=== PATIENT | female | born 1935 | race Caucasian/White ===

== ENCOUNTER 2017-09-19 21:39 | Emergency (ER) | payer OTHER ==
[~2017-09-19] VITALS: Ht 160 cm; Wt 60.8 kg
[~2017-09-19 21:39] MED LIST: ADULT LOW DOSE81 MG PO; ADVAIR 250-501 EACH INH; ALBUTEROL2.5 MG/31 INH; AMLODIPINE BESYL5 MG PO; ASPIRIN81 M2; BACTRIM DS TAB1 EACH PO; BENADRYL25 MG PO; CALCIUM 600 +1 EA11 PO; CALCIUM 600+D1 EACH PO; CARDURA1 MG PO; CLARITIN10 MG PO; COUMADIN 1MG TAB1 M1 PO; COUMADIN 2.5MG2.5 M1 PO; COUMADIN 5 MG TA5 M1 PO; COZAAR 50 MG TA50 M1 PO; COZAAR 50 MG TA50 M2 PO; DIPHENHYDRAMINE25 M1 PO; DOXAZOSIN MESYLA1 MG PO; ELEMENTAL CALC600 MG; FISH OIL 1,001000 M2 PO; HYDROCODONE-AP1 EAC6 PO; JANUVIA100 MG PO; KLOR-CON 1010 MEQ PO; KLOR-CON SPRIN10 MEQ PO; LASIX 20 MG TAB20 MG PO; LEVAQUIN 500 M500 M2 PO; LEVAQUIN 750 M750 MG PO; MUCINEX600 MG PO; OMEPRAZOLE 20 M20 M1 PO; OS-CAL 500+D C1 EACH; OXYBUTYNIN 5 MG5 M2 PO; PAXIL10 MG; PERFOROMIS20 MCG/2 M; PERFOROMIS20 MCG/2 M INH; PRAVACHOL 20 MG20 M1 PO; PRAVACHOL20 MG PO; PREDNISONE 10 M10 M1; PREDNISONE 10 M10 M1 PO; PREDNISONE 20 M20 MG PO; PROAIR HFA8.5 GM INH; PROZAC 20 MG20 MG PO; PULMICORT0.5 MG/22 INH; RESTASIS1 EACH OPHTHALMIC; SYNTHROID50 MCG PO; TRAZODONE HCL50 MG PO; VESICARE 5 MG TA5 MG PO; VITAMIN D1000 UNI1 PO; XARELTO20 MG PO; ZPAK PO
[2017-09-19] MEDS ORDERED: MUCINEX1200 MG PO (21:53)
[2017-09-19] MEDS ORDERED: CARDURA4 MG PO (21:54)
[2017-09-19] MEDS ORDERED: PERFOROMIS20 MCG/2 M INH (21:57)
[2017-09-19] MEDS ORDERED: PERCOCET 5-3251 EACH PO (22:15)
[2017-09-19 22:32] VITALS: BP 142/66
== END 2017-09-19 22:34 | disposition home or self-care (01) ==
LOC: M.ERS 21:39
DX: S80.12XA Contusion of left lower leg, initial encounter (principal); J44.9 Chronic obstructive pulmonary disease, unspecified; K21.9 Gastro-esophageal reflux disease without esophagitis; E78.5 Hyperlipidemia, unspecified; E11.9 Type 2 diabetes mellitus without complications; I11.0 Hypertensive heart disease with heart failure; I50.9 Heart failure, unspecified; Z86.73 Personal history of transient ischemic attack (TIA), and cerebral infarction without residual deficits; Z85.828 Personal history of other malignant neoplasm of skin; Z86.718 Personal history of other venous thrombosis and embolism; Z86.711 Personal history of pulmonary embolism; Z91.041 Radiographic dye allergy status; Z88.0 Allergy status to penicillin; W22.8XXA Striking against or struck by other objects, initial encounter; Y93.89 Activity, other specified; Y92.89 Other specified places as the place of occurrence of the external cause; Y99.8 Other external cause status

== ENCOUNTER 2017-11-17 21:56 | Inpatient (IN) | payer OTHER ==
[~2017-11-17] VITALS: Ht 132 cm; Wt 59.0 kg
[~2017-11-17 21:56] MED LIST changes: +CARDURA4 MG PO; +MUCINEX1200 MG PO; +PERCOCET 5-3251 EACH PO
[2017-11-17 22:29] VITALS: BP 145/71
[2017-11-17 22:58] LABS: HEMATOCRIT 37.2 % (37.0-47.0); HEMOGLOBIN 11.6 gm/dL (12.0-15.0); MCH 23.6 pg (26.0-34.0); MCHC 31.3 g/dL (28.0-37.0); MCV 75.5 fL (80.0-100.0); MPV 9.1 fl. (7.2-11.1); NUCLEATED RBCS 0 /100WBC; PLATELET COUNT* 186 thou/uL (150-400); RBC 4.93 mil/uL (4.20-5.00); RDW-CV 17.9 % (10.5-14.5)
[2017-11-17 23:09] LABS: ANION GAP 5 mmol/L (7-16); BUN 18 mg/dL (7-18); CALCIUM 8.8 mg/dL (8.5-10.1); CHLORIDE 103 mmol/L (98-107); CO2 31 mmol/L (21-32); CREATININE 1.7 mg/dL (0.6-1.3); GLUCOSE 153 mg/dL (70-99); POTASSIUM 4.3 mmol/L (3.5-5.1); SODIUM 139 mmol/L (136-145)
[2017-11-17] MEDS ORDERED: FISH OIL 1,001000 M2 PO (23:09)
[2017-11-17] MEDS ORDERED: MUCINEX1200 MG PO (23:11)
[2017-11-17 23:15] LABS: ALKALINE PHOSPHATASE 207 U/L (46-116); LIPASE 81 U/L (73-393); SGOT 354 U/L (15-37); SGPT 305 U/L (30-65); TOTAL BILIRUBIN 2.6 mg/dL (<0.1-1.0); TROPONIN-I LEVEL <0.06 ng/mL (<0.06)
[2017-11-17 23:43] LABS: ABSOLUTE LYMPHOCYTES 0.7 thou/uL (0.8-5.3); ABSOLUTE MONOCYTES 0.9 thou/uL (0.0-1.2); ABSOLUTE NEUTROPHILS 16.4 thou/uL (1.6-8.1)
[2017-11-17 23:44] LABS: PLATELET ESTIMATE ADEQUATE
[2017-11-17 23:45] LABS: ANISOCYTOSIS 1+
[2017-11-18 02:10] LABS: URINE BLOOD NEGATIVE (Negative); URINE CLARITY CLEAR; URINE COLOR YELLOW; URINE GLUCOSE-RANDOM NEGATIVE (Negative); URINE KETONES NEGATIVE (Negative); URINE LEUKOCYTES-REFLEX NEGATIVE (Negative); URINE NITRITE-REFLEX NEGATIVE (Negative); URINE PROTEIN NEGATIVE (Negative)
[2017-11-18 02:12] LABS: URINE BILIRUBIN 1+ (Negative)
[2017-11-18 02:13] LABS: ICTOTEST (BILI CONFIRMATORY) Positive (Negative)
[2017-11-18 02:48] VITALS: BP 124/55
[2017-11-18 04:22] VITALS: BP 108/52
--- NOTE | 2017-11-18 05:57 | NUR ---
ARRIVED FROM ER ALERT AND ORIENTED. DAUGHTER AT BEDSIDE. ORIENTED TO ROOM AND BED CONTROLS. ASSESSMENT CHARTED. DENIES PAIN OR NAUSEA AT THIS TIME. CALL LIGHT WITHIN REACH.
[2017-11-18 08:00] VITALS: BP 145/64
--- NOTE | 2017-11-18 12:41 | EKG ---
[place] [address] ELECTROCARDIOGRAM REPORT Name: RUTH AGUILAR Room: [address] IN .R.#: [id number] Admission: 11/18/17 Attend Phys: Hyun Vega MD Discharge: Date of : 33 Report #: [id number] THIS REPORT FOR: //name// [facility] ED Test Date: 2017-11-17 Test Time: 22:49:37 Pat Name: RUTH AGUILAR Department: Room: Gender: F Inbound Sales Representative: : 1935 Requested By: Hamilton Mathis Order Number: [id number] MD: Boo Castro Measurements Intervals [place] Rate: 82 P: 54 MD: 109 QRS: -1 QRSD: 91 T: 54 QT: 423 QTc: 494 Interpretive Statements Sinus rhythm Short MD interval Minimal ST depression, lateral leads Borderline prolonged QT interval Compared to ECG 04/14/2017 09:04:08 ST (T wave) deviation now present Electronically Signed On 11-18-2017 12:41:39 CDT by Boo Castro [email or web address] <ELECTRONICALLY SIGNED> By: Boo Castro MD, [facility] 11/18/17 1241 2249 2249 Boo Castro MD, [facility] /EPI
[2017-11-18 16:00] VITALS: BP 149/75
--- NOTE | 2017-11-18 20:55 | NUR ---
I ASSUMED CARE OF THE PATIENT AT 0700. SHE IS ALERT AND ORIENTED X4 AND DAUGHTER IS AT THE BEDSIDE. BED ALARM IS ON AND SHE CAN GET UP WITH A WALKER AND A GAIT BELT TO USE THE BATHROOM. BLOOD SUGARS WERE OBTAINED AND WNL. HOURLY ROUNDING WAS COMPLETED AND PATIENT NEEDS WERE MET. PAIN IS DENIED. XERALTO IS TO BE HELD UNTIL AFTER ERCP AT 0800 ON 11/19/17. PATIENT REFUSED TO HAVE WOUND DRESSING CHANGED OR A PHOTO OBTAINED UNTIL THE END OF THE SHIFT, THEN THE DAUGHTER AGREED TO IT WHEN SHE FOUND SUPPLIES TO CHANGE IT PROPERLY. DRESSING IS IN THE ROOM. DO NOT TAKE BLOOD PRESSURES ON THE RIGHT D/T BRUISING. WILL CONTINUE TO MONITOR.
[2017-11-18 21:00] VITALS: BP 148/86
[2017-11-19 03:59] VITALS: BP 148/86
--- NOTE | 2017-11-19 04:43 | NUR ---
ALERT AND ORIENTED X4. UP WITH STAND BY ASSIST, GAIT BELT AND WALKER. DENIES PAIN OR NAUSEA. NPO AT THIS TIME FOR PROCEDURE THIS AM. REMAINS ON O2 AT 2L/NC WITH 02 SAT REMAINING IN 90'S. CONTINUES TO RECEIVE BREATHING TREATMENTS. CALL LIGHT WITHIN REACH. BED ALARM.
[2017-11-19 06:10] LABS: ABSOLUTE LYMPHOCYTES 1.2 thou/uL (0.8-5.3); ABSOLUTE MONOCYTES 0.7 thou/uL (0.0-1.2); ABSOLUTE NEUTROPHILS 6.2 thou/uL (1.6-8.1); BASOPHILS 0.2 %; EOSINOPHILS 0.6 %; HEMATOCRIT 31.4 % (37.0-47.0); HEMOGLOBIN 9.8 gm/dL (12.0-15.0); LYMPHOCYTES 15.2 %; MCH 23.8 pg (26.0-34.0); MCHC 31.3 g/dL (28.0-37.0); MCV 76.1 fL (80.0-100.0); MONOCYTES 8.2 %; MPV 9.4 fl. (7.2-11.1); NUCLEATED RBCS 0 /100WBC; PLATELET COUNT* 141 thou/uL (150-400); POLYS 75.8 %; RBC 4.12 mil/uL (4.20-5.00); RDW-CV 18.1 % (10.5-14.5); WBC 8.1 thou/uL (4.0-11.0)
[2017-11-19 06:13] LABS: INR 1.6; PROTIME 15.4 Seconds (9.20-11.50)
[2017-11-19 06:22] LABS: ALBUMIN 2.3 g/dL (3.4-5.0); CALCIUM 7.2 mg/dL (8.5-10.1); CREATININE 1.3 mg/dL (0.6-1.3); TOTAL BILIRUBIN 1.2 mg/dL (<0.1-1.0)
[2017-11-19 09:02] LABS: CALCIUM 7.7 mg/dL (8.5-10.1); CREATININE 1.3 mg/dL (0.6-1.3); MAGNESIUM 1.9 mg/dL (1.8-2.4)
[2017-11-19 16:21] VITALS: BP 140/56
--- NOTE | 2017-11-19 17:45 | NUR ---
I ASSUMED CARE OF THE PATIENT AT 0700. SHE IS ALERT AND ORIENTED X4 AND IS UP WITH ASSIST X1. BED IS IN THE LOW LOCKED POSITION AND CALL LIGHT IS IN REACH. HOURLY ROUNDING WAS COMPLETED AND PATIENT NEEDS ARE MET. PAIN IS DENIED. PATIENT WAS OFF THE UNIT FOR SEVERAL HOURS HAVING AN ERCP DONE. SEVERAL STONES WERE REMOVED. PATIENT HAD SOME ISSUES WITH HIGH BLOOD PRESSURE DURING THE PROCEDURE. NEW ORDERS WERE OBTAINED. SHE IS TO HAVE A CLR LIQUID DIET THAT CAN BE ADVANCED TOLERATED UNTIL SHE REACHES A FULL REGULAR DIET. SEE CHART FOR DETAILS OF PROCEDURE. WILL CONTINUE TO MONITOR.
[2017-11-19 20:15] VITALS: BP 128/45
[2017-11-20 00:18] VITALS: BP 107/51
[2017-11-20 04:24] VITALS: BP 138/62
--- NOTE | 2017-11-20 05:00 | NUR ---
UP WITH STAND BY ASSIST AND WALKER TO BATHROOM. ALERT AND ORIENTED X4. CONTINUES ON IVF. O2 SATS IN 90'S WITH O2 AT 4L/NC. DENIES NEED FOR PAIN MEDICATIONS. RESTED QUIETLY THROUGHOUT NIGHT. HAD FULL LIQUID DIET. BED ALARM ON. CALL LIGHT WITHIN REACH.
[2017-11-20 05:25] LABS: ALBUMIN 2.3 g/dL (3.4-5.0); DIRECT BILIRUBIN 0.4 mg/dL (<0.1-0.3); TOTAL BILIRUBIN 0.9 mg/dL (<0.1-1.0)
[2017-11-20 07:40] LABS: HEMATOCRIT 31.7 % (37.0-47.0); HEMOGLOBIN 9.9 gm/dL (12.0-15.0); MCH 23.7 pg (26.0-34.0); MCHC 31.2 g/dL (28.0-37.0); MPV 9.9 fl. (7.2-11.1); RBC 4.17 mil/uL (4.20-5.00); RDW-CV 18.3 % (10.5-14.5); WBC 8.9 thou/uL (4.0-11.0)
[2017-11-20 07:45] LABS: CALCIUM 6.5 mg/dL (8.5-10.1); CREATININE 1.2 mg/dL (0.6-1.3); POTASSIUM 3.1 mmol/L (3.5-5.1)
[2017-11-20 09:20] VITALS: BP 140/68
[2017-11-20 10:42] VITALS: BP 140/68
--- NOTE | 2017-11-20 11:35 | NUR ---
PATIENT AND DAUGHTER GIVEN DISHCARGE INSTRUCTIONS AT THIS TIME. PATIENT AND DAUGHTER VERBALIZED UNDERSTANDING IN REGARDS TO FOLLOW UP APPOINTMENTS AND MEDICATIONS. PATIENT DISHCARGED TO HOME WITH ALL BELONGINGS. ESCORTED OFF NURSING UNIT VIA WHEELCHAIR WITH NURSING STAFF.
--- NOTE | 2017-11-22 16:41 | CON ---
[address] [address] CONSULTATION Name: RUTH AGUILAR Room: [address] IN M.R.#: [id number] Admission: 11/18/17 Attend Phys: Hyun Vega MD Discharge: 11/20/17 Date of : 34 Report #: [id number] THIS REPORT FOR: //name// CC: Troy Vega MD DATE OF SERVICE: 11/18/2017 REQUESTING PHYSICIAN: Hyun Vega MD REASON FOR CONSULT: Abnormal liver enzymes and evidence of choledocholithiasis per imaging. HISTORY OF PRESENT ILLNESS: This is an 82-year-old female with history of leg wound for which she was getting wound care. She went to [facility] and was told that she has choledocholithiasis, but they could not do an ERCP since they did not have the equipment. The patient currently admitted to [place] and the CT suggestive of mildly dilated common bile duct with a filling defect. She also has elevated liver enzymes and a bilirubin of 2.6. The patient is resting comfortably and is on antibiotics, levofloxacin. The patient was also on Xarelto for history of factor V Leiden, but she has stopped the Xarelto since Monday morning. The patient denies any fever, chills or abdominal pain. PAST MEDICAL HISTORY: Significant for history of gastroesophageal reflux disease, hypertension, dyslipidemia, bilateral cataract surgery, COPD, carotid artery stenosis of the right side, parathyroidectomy, DVT, PE, non-insulin dependent diabetes mellitus, and history of TIAs. ALLERGIES: Significant to CYCLOSPORINE, CONTRAST DYE, and PENICILLIN. MEDICATIONS: Please refer to hospital MAR. SOCIAL HISTORY: The patient denies any alcohol or tobacco use. She lives at home. FAMILY HISTORY: Noncontributory. PHYSICAL EXAMINATION: VITAL SIGNS: Reveals blood pressure of 145/64, respirations 18, pulse 69, and temperature 98.7. LUNGS: Clear. CARDIOVASCULAR: Regular. ABDOMEN: Soft, mildly tender to palpation in [place] [address] CONSULTATION Name: RUTH AGUILAR Room: [address]#: [id number] Admission: 11/18/17 Attend Phys: Hyun Vega MD Discharge: 11/20/17 Date of : 34 Report #: [id number] sounds are positive. NEUROLOGIC: The patient is alert and oriented x3. LABS: Reveal sodium of 139, potassium 4.3, BUN is 18, creatinine 1.7, glucose is 153, AST is 354, ALT 305, 207, and total bilirubin 2.6. WBC is 18, hemoglobin 11.6, and platelet of 186. IMAGING: CT of abdomen and pelvis was obtained on admission. This is significant for cholelithiasis and choledocholithiasis with common bile duct dilatation. There is also evidence of fatty liver disease. ASSESSMENT AND PLAN: The patient with elevated liver enzymes, leukocytosis, and dilated common bile duct, we will need to perform the ERCP. She has had Xarelto recently, therefore we will wait until tomorrow and continue antibiotic therapy. We will perform her ERCP with sphincterotomy and possible stone extraction on Monday, 7:00 a.m. <ELECTRONICALLY SIGNED> By: Tobias Aiken MD 11/22/17 1641 1537 1617Tobias Aiken MD /nt
== END 2017-11-20 11:35 | disposition home or self-care (01) | DRG 871 ==
LOC: M.ERS 21:56 → M.ORTHSURG 11-18 01:23 → M.TBA-ER 11-18 01:23 → M.ORTHSURG 11-18 03:20
PROVIDERS: Emergency Medicine Emergency Medical Services; Internal Medicine; Internal Medicine Gastroenterology; ADMIT Internal Medicine
PROC: 0F798ZZ Dilation of Common Bile Duct, Via Natural or Artificial Opening Endoscopic (ICD-10-PCS; principal; 2017-11-19)
PROC: 0FC98ZZ Extirpation of Matter from Common Bile Duct, Via Natural or Artificial Opening Endoscopic (ICD-10-PCS; principal; 2017-11-19)
DX: A41.9 Sepsis, unspecified organism (principal); N17.0 Acute kidney failure with tubular necrosis; E43 Unspecified severe protein-calorie malnutrition; K80.51 Calculus of bile duct without cholangitis or cholecystitis with obstruction; I13.0 Hypertensive heart and chronic kidney disease with heart failure and stage 1 through stage 4 chronic kidney disease, or unspecified chronic kidney disease; N18.4 Chronic kidney disease, stage 4 (severe); J44.9 Chronic obstructive pulmonary disease, unspecified; K21.9 Gastro-esophageal reflux disease without esophagitis; I50.9 Heart failure, unspecified; I65.21 Occlusion and stenosis of right carotid artery; E78.5 Hyperlipidemia, unspecified; I25.10 Atherosclerotic heart disease of native coronary artery without angina pectoris; E87.6 Hypokalemia; E11.9 Type 2 diabetes mellitus without complications; Z96.1 Presence of intraocular lens; Z88.0 Allergy status to penicillin; Z88.8 Allergy status to other drugs, medicaments and biological substances; Z91.041 Radiographic dye allergy status; Z79.01 Long term (current) use of anticoagulants; Z86.718 Personal history of other venous thrombosis and embolism; Z86.711 Personal history of pulmonary embolism; Z98.42 Cataract extraction status, left eye; Z98.41 Cataract extraction status, right eye; Z86.73 Personal history of transient ischemic attack (TIA), and cerebral infarction without residual deficits; Z79.2 Long term (current) use of antibiotics; Z79.899 Other long term (current) drug therapy

== ENCOUNTER 2017-11-28 10:06 | Emergency (ER) | payer OTHER ==
[~2017-11-28] VITALS: Ht 162.6 cm; Wt 59.0 kg
[2017-11-28 10:58] LABS: HEMATOCRIT 35.4 % (37.0-47.0); HEMOGLOBIN 10.9 gm/dL (12.0-15.0); MCH 23.3 pg (26.0-34.0); MCHC 30.8 g/dL (28.0-37.0); MCV 75.8 fL (80.0-100.0); MPV 9.2 fl. (7.2-11.1); NUCLEATED RBCS 0 /100WBC; PLATELET COUNT* 189 thou/uL (150-400); RBC 4.67 mil/uL (4.20-5.00); RDW-CV 18.3 % (10.5-14.5); WBC 11.2 thou/uL (4.0-11.0)
[2017-11-28 11:04] LABS: CREATININE 1.3 mg/dL (0.6-1.3); POTASSIUM 3.8 mmol/L (3.5-5.1)
[2017-11-28 11:05] LABS: APTT 26.8 Seconds (25.0-31.3); INR 1.2
[2017-11-28 11:09] LABS: TOTAL BILIRUBIN 0.7 mg/dL (<0.1-1.0); TOTAL PROTEIN 5.9 g/dL (6.4-8.2)
[2017-11-28 11:22] LABS: ABSOLUTE LYMPHOCYTES 1.3 thou/uL (0.8-5.3); ABSOLUTE NEUTROPHILS 9.9 thou/uL (1.6-8.1)
[2017-11-28 11:23] LABS: ANISOCYTOSIS 1+; PLATELET ESTIMATE ADEQUATE; POIKILOCYTOSIS 1+
[2017-11-28 11:49] VITALS: BP 166/74
== END 2017-11-28 11:50 | disposition still patient (30) ==
LOC: M.ERS 10:06
PROVIDERS: Personal Emergency Response Attendant
DX: M79.604 Pain in right leg (principal); M79.605 Pain in left leg; J44.9 Chronic obstructive pulmonary disease, unspecified; K21.9 Gastro-esophageal reflux disease without esophagitis; E78.5 Hyperlipidemia, unspecified; E11.9 Type 2 diabetes mellitus without complications; I11.0 Hypertensive heart disease with heart failure; I50.9 Heart failure, unspecified; Z88.1 Allergy status to other antibiotic agents; Z85.828 Personal history of other malignant neoplasm of skin; Z86.718 Personal history of other venous thrombosis and embolism; Z86.711 Personal history of pulmonary embolism; Z86.73 Personal history of transient ischemic attack (TIA), and cerebral infarction without residual deficits; Z91.041 Radiographic dye allergy status; Z88.0 Allergy status to penicillin

== ENCOUNTER → 2018-04-17 | Outpatient (CLI) | payer OTHER | LOC: M.MRI 04-09 08:46 → M.LAB 12:17 → M.MRI 13:30 | DX: H47.013 Ischemic optic neuropathy, bilateral (principal); G31.89 Other specified degenerative diseases of nervous system ==

== ENCOUNTER 2018-09-12 15:14 | Emergency (ER) | payer OTHER ==
[~2018-09-12] VITALS: Ht 160 cm; Wt 54.4 kg
[2018-09-12 15:57] LABS: HEMATOCRIT 33.8 % (37.0-47.0); HEMOGLOBIN 10.6 gm/dL (12.0-15.0); MCH 22.8 pg (26.0-34.0); MCHC 31.3 g/dL (28.0-37.0); MCV 72.9 fL (80.0-100.0); MPV 8.2 fl. (7.2-11.1); NUCLEATED RBCS 0 /100WBC; PLATELET COUNT* 172 thou/uL (150-400); RBC 4.64 mil/uL (4.20-5.00); RDW-CV 17.2 % (10.5-14.5); WBC 7.8 thou/uL (4.0-11.0)
[2018-09-12 16:06] LABS: CALCIUM 8.5 mg/dL (8.5-10.1); CREATININE 1.3 mg/dL (0.6-1.3); POTASSIUM 4.2 mmol/L (3.5-5.1)
[2018-09-12 16:11] LABS: ALBUMIN 3.4 g/dL (3.4-5.0); TOTAL BILIRUBIN 0.4 mg/dL (<0.1-1.0); TOTAL PROTEIN 6.4 g/dL (6.4-8.2)
[2018-09-12 16:50] LABS: ABSOLUTE EOSINOPHILS 0.1 thou/uL (0.0-0.7); ABSOLUTE LYMPHOCYTES 0.3 thou/uL (0.8-5.3); ABSOLUTE MONOCYTES 0.3 thou/uL (0.0-1.2); ABSOLUTE NEUTROPHILS 7.1 thou/uL (1.6-8.1)
[2018-09-12 16:51] LABS: ANISOCYTOSIS 1+; MICROCYTES 1+; PLATELET ESTIMATE ADEQUATE
[2018-09-12 16:53] LABS: HYPOCHROMASIA 2+; OVALOCYTES Occasional
[2018-09-12 17:46] VITALS: BP 133/67
--- NOTE | 2018-09-13 14:43 | EKG ---
[place] [address] ELECTROCARDIOGRAM REPORT Name: JEFFRUTH Room: [facility]#: [id number] Admission: 09/12/18 Attend Phys: Discharge: 09/12/18 Date of : 34 Report #: [id number] THIS REPORT FOR: //name// [facility] ED Test Date: 2018-09-12 Test Time: 15:30:12 Pat Name: RUTH AGUILAR Department: Room: Gender: F Information Systems Manager: VAHE : 1935 Requested By: Jose R Suarez Order Number: [id number] MD: Abel Irene Measurements Intervals [place] Rate: 80 P: 53 [place]: 109 QRS: -10 QRSD: 85 T: 60 QT: 385 QTc: 445 Interpretive Statements Sinus rhythm Short [place] interval Borderline low voltage, extremity leads Baseline wander in lead(s) III Compared to ECG 11/17/2017 22:49:37 ST (T wave) deviation no longer present Electronically Signed On 09-13-2018 14:43:49 CDT by Abel Irene [email or web address] <ELECTRONICALLY SIGNED> By: Abel Irene MD, FACC 09/13/18 1443 1530 1530 Abel Irene MD, [facility] /EPI
== END 2018-09-12 17:47 | disposition home or self-care (01) ==
LOC: M.ERS 15:14
PROVIDERS: Nurse Practitioner Family
DX: S01.112A Laceration without foreign body of left eyelid and periocular area, initial encounter (principal); S81.012A Laceration without foreign body, left knee, initial encounter; I11.0 Hypertensive heart disease with heart failure; I50.9 Heart failure, unspecified; E11.9 Type 2 diabetes mellitus without complications; J44.9 Chronic obstructive pulmonary disease, unspecified; K21.9 Gastro-esophageal reflux disease without esophagitis; E78.5 Hyperlipidemia, unspecified; Z85.828 Personal history of other malignant neoplasm of skin; Z86.718 Personal history of other venous thrombosis and embolism; Z86.711 Personal history of pulmonary embolism; Z86.73 Personal history of transient ischemic attack (TIA), and cerebral infarction without residual deficits; Z88.0 Allergy status to penicillin; Z91.041 Radiographic dye allergy status; Z88.8 Allergy status to other drugs, medicaments and biological substances; W18.39XA Other fall on same level, initial encounter; Y93.89 Activity, other specified; Y92.098 Other place in other non-institutional residence as the place of occurrence of the external cause; Y99.8 Other external cause status

== ENCOUNTER → 2018-10-01 | Outpatient (CLI) | payer OTHER ==
--- NOTE | 2018-10-03 14:34 | EEG ---
[address] [address] EEG STUDY REPORT Name: RUTH AGUILAR [id number] Admission: 10/01/18 Attend Phys: Alex Packer MD Discharge: Date of : 34 Report #: [id number] THIS REPORT FOR: //name// CC: Troy Packer DATE OF SERVICE: 10/01/2018 This patient had an episode of syncope. EEG was done by placing the electrode by standard 10-20 system of electrode placement. Both referential and sequential montages were used for recording. Background activity in this patient's EEG is about 9 Hz and 30 microvolt. The patient became drowsy and that is associated with bilateral slowing and vertex sharp waves. Photic stimulation was unremarkable. Throughout the record, no active epileptiform activity was noticed. IMPRESSION: This patient's EEG is intermixed with some theta range slowing on both sides. That is a nonspecific finding, which can occur with dementia, encephalopathy, effect of psychotropic medication, etc. Clinical correlation is recommended. <ELECTRONICALLY SIGNED> By: Alex Packer MD 10/03/18 1434 194 Parmarvin Packer MD /nt
== END ==
LOC: M.CRD 12:00 → M.ULTRA 13:00 → M.CRD 13:00 → M.ULTRA 14:00
DX: I65.23 Occlusion and stenosis of bilateral carotid arteries (principal); Z87.09 Personal history of other diseases of the respiratory system

== ENCOUNTER → 2018-10-15 | Outpatient (CLI) | payer OTHER | LOC: M.MRI 10-09 13:42 | DX: I65.21 Occlusion and stenosis of right carotid artery (principal) ==

== ENCOUNTER → 2019-03-19 | Outpatient (CLI) | payer OTHER ==
[2019-03-19 07:19] LABS: ABSOLUTE EOSINOPHILS 0.1 thou/uL (0.0-0.7); ABSOLUTE LYMPHOCYTES 2.1 thou/uL (0.8-5.3); ABSOLUTE MONOCYTES 0.8 thou/uL (0.0-1.2); ABSOLUTE NEUTROPHILS 4.9 thou/uL (1.6-8.1); BASOPHILS 0.5 %; EOSINOPHILS 1.5 %; HEMOGLOBIN 10.2 gm/dL (12.0-15.0); LYMPHOCYTES 26.3 %; MCH 23.9 pg (26.0-34.0); MCHC 31.8 g/dL (28.0-37.0); MCV 75.2 fL (80.0-100.0); MPV 8.1 fl. (7.2-11.1); NUCLEATED RBCS 0 /100WBC; PLATELET COUNT* 181 thou/uL (150-400); POLYS 61.7 %; RBC 4.25 mil/uL (4.20-5.00); RDW-CV 16.9 % (10.5-14.5); WBC 7.9 thou/uL (4.0-11.0)
[2019-03-19 07:33] LABS: CREATININE 1.4 mg/dL (0.6-1.3); POTASSIUM 3.3 mmol/L (3.5-5.1); TOTAL BILIRUBIN 0.5 mg/dL (<0.1-1.0); TOTAL PROTEIN 5.9 g/dL (6.4-8.2)
[2019-03-19 09:51] LABS: ESR (SEDRATE) 13 mm/hr (0-30)
[2019-03-20 02:06] LABS: IgA 67 mg/dL (64-422); IgG 608 mg/dL (700-1600); IgM 51 mg/dL (26-217)
[2019-03-20 12:10] LABS: ANA INTERPRETATION Negative (Negative)
== END ==
LOC: M.MRI 02-21 08:56
PROVIDERS: Psychiatry & Neurology Neuromuscular Medicine
DX: I65.21 Occlusion and stenosis of right carotid artery (principal); R26.9 Unspecified abnormalities of gait and mobility; R20.2 Paresthesia of skin; G62.9 Polyneuropathy, unspecified; R55 Syncope and collapse; M96.1 Postlaminectomy syndrome, not elsewhere classified

== ENCOUNTER 2019-12-06 17:07 | Inpatient (IN) | payer OTHER ==
[~2019-12-06] VITALS: Ht 162.6 cm; Wt 63.0 kg
[2019-12-06 17:37] VITALS: BP 151/65
[2019-12-06 18:19] LABS: ABSOLUTE LYMPHOCYTES 0.9 thou/uL (0.8-5.3); ABSOLUTE MONOCYTES 0.5 thou/uL (0.0-1.2); ABSOLUTE NEUTROPHILS 6.3 thou/uL (1.6-8.1); BASOPHILS 0.3 %; EOSINOPHILS 0.1 %; HEMOGLOBIN 10.8 gm/dL (12.0-15.0); LYMPHOCYTES 11.2 %; MCH 25.3 pg (26.0-34.0); MCHC 32.7 g/dL (28.0-37.0); MCV 77.5 fL (80.0-100.0); MONOCYTES 6.4 %; MPV 7.9 fl. (7.2-11.1); NUCLEATED RBCS 0 /100WBC; PLATELET COUNT* 232 thou/uL (150-400); RBC 4.26 mil/uL (4.20-5.00); RDW-CV 18.6 % (10.5-14.5); WBC 7.7 thou/uL (4.0-11.0)
[2019-12-06 18:27] LABS: CALCIUM 8.2 mg/dL (8.5-10.1); CREATININE 1.4 mg/dL (0.6-1.3); POTASSIUM 4.9 mmol/L (3.5-5.1)
[2019-12-06 18:31] LABS: APTT 24.6 Seconds (25.0-31.3); INR 1.2; PROTIME 12.6 Seconds (9.20-11.50)
[2019-12-06 18:32] LABS: ALBUMIN 3.4 g/dL (3.4-5.0); TOTAL BILIRUBIN 0.4 mg/dL (<0.1-1.0)
[2019-12-06 19:17] LABS: URINE BILIRUBIN NEGATIVE (Negative); URINE BLOOD NEGATIVE (Negative); URINE CLARITY CLEAR; URINE COLOR YELLOW; URINE GLUCOSE-RANDOM NEGATIVE (Negative); URINE KETONES NEGATIVE (Negative); URINE LEUKOCYTES-REFLEX NEGATIVE (Negative); URINE NITRITE-REFLEX NEGATIVE (Negative); URINE PROTEIN NEGATIVE (Negative); URINE SPECIFIC GRAVITY 1.015 (1.005-1.030); URINE UROBILINOGEN 0.2 E.U./dl (0.2-1.0)
[2019-12-06 20:31] VITALS: BP 155/78
[2019-12-06 21:30] VITALS: BP 168/84
[2019-12-06] MEDS ORDERED: NORVASC5 M1 PO (22:55)
[2019-12-06] MEDS ORDERED: VIMPAT100 MG PO (22:55)
[2019-12-06] MEDS ORDERED: ZESTRIL20 MG PO (22:56)
[2019-12-06] MEDS ORDERED: MELATONIN5 MG PO (22:57)
[2019-12-07] VITALS: BP 152/62
[2019-12-07 04:00] VITALS: BP 183/71
[2019-12-07 08:10] VITALS: BP 149/71
[2019-12-07 12:56] VITALS: BP 167/72
--- NOTE | 2019-12-07 13:36 | EKG ---
[place] [address] ELECTROCARDIOGRAM REPORT Name: RUTH AGUILAR Room: [address] M.R.#: [id number] Admission: 12/06/19 Attend Phys: Ryan Grover, Discharge: Date of : 33 Date of Service: 12/06/19 1750 Report #: [id number] THIS REPORT FOR: //name// [facility] ED Test Date: 2019-12-06 Test Time: 17:50:43 Pat Name: RUTH AGUILAR Department: Room: [facility] Gender: F Cost Estimating Engineer: : 1935 Requested By: Ebenezer Fu Order Number: [id number] MD: Trung Washburn Measurements Intervals [place] Rate: 78 P: 58 DC: 118 QRS: -7 QRSD: 103 T: 62 QT: 392 QTc: 447 Interpretive Statements Sinus rhythm Borderline short DC interval Borderline T abnormalities, lateral leads Compared to ECG 09/12/2018 15:30:12 no change Electronically Signed On 12-07-2019 13:36:13 CDT by Trung Washburn [email or web address] <ELECTRONICALLY SIGNED> By: Trung Washburn MD, [facility] 12/07/19 1336 1750 1750 Trung Washburn MD, [facility] /EPI
[2019-12-07 16:09] VITALS: BP 127/82
[2019-12-07 16:36] LABS: CALCIUM 8.6 mg/dL (8.5-10.1); CREATININE 1.2 mg/dL (0.6-1.3); MAGNESIUM 2.2 mg/dL (1.8-2.4); POTASSIUM 4.5 mmol/L (3.5-5.1)
[2019-12-07 20:10] VITALS: BP 165/72
[2019-12-08] VITALS: BP 146/57
[2019-12-08 03:55] VITALS: BP 146/71
[2019-12-08 08:28] VITALS: BP 138/74
[2019-12-08 12:00] VITALS: BP 117/48
[2019-12-08 16:06] VITALS: BP 121/51
[2019-12-08 20:00] VITALS: BP 144/56
[2019-12-09] VITALS: BP 147/74
[2019-12-09 08:00] VITALS: BP 155/70
[2019-12-09 12:34] VITALS: BP 121/66
--- NOTE | 2019-12-09 14:51 | 2DMMODE ---
[place] [address] 2 D/M-MODE ECHOCARDIOGRAM Name: RUTH AGUILAR Room: [address] ADM IN [place].Catherine.#: [id number] Admission: 12/07/19 Attend Phys: Eugene Longo Discharge: Date of : 34 Date of Service: 12/09/19 1451 Report #: [id number] THIS REPORT FOR: cc: Mendoza Chao MD, Todd A. MD Blick,Trung Gifford MD [facility] ~ APPROVED REPORT Study performed: 12/09/2019 10:41:05 EXAM: Comprehensive 2D, Doppler, and color-flow Echocardiogram Patient Location: In-Patient Room #: [facility] Status: routine BSA: 1.69 HR: 81 bpm BP: 155/70 mmHg Rhythm: NSR Other Information Study Quality: Fair Indications Abnormal ECG 2D Dimensions IVSd: 12.00 (7-11mm) LVOT Diam: 19.10 (18-24mm) LVDd: 41.62 mm PWd: 10.96 (7-11mm) Ascending Ao: 23.95 (22-36mm) LVDs: 24.04 (25-40mm) Aortic Root: 30.73 mm Volumes Left Atrial Volume (Systole) LA ESV Index: 23.80 mL/m2 Aortic Valve AoV Peak Ronak.: 2.26 m/s AO Peak Gr.: 20.45 mmHg LVOT Max P.80 mmHg AO Mean Gr.: 11.17 mmHg LVOT Mean P.89 mmHg LVOT Max V: 1.20 m/s AO V2 VTI: 40.97 cm LVOT Mean V: 0.79 m/s FREEMAN (VTI): 2.00 cm2 LVOT V1 VTI: 28.54 [place] [address] 2 D/M-MODE ECHOCARDIOGRAM Name: RUTH AGUILAR Room: [address] IN ..#: [id number] Admission: 12/07/19 Attend Phys: Eugene Longo Discharge: Date of : 33 Date of Service: 12/09/19 1451 Report #: [id number] Mitral Valve MV Mean Gr.: 3.14 mmHg E/A Ratio: 0.58 MV Decel. Time: 384.78 ms MV E Max Ronak.: 0.79 m/s MV PHT: 111.59 ms MVA (PHT): 1.97 cm2 TDI E/Lateral E': 7.90 E/Medial E': 7.90 Medial E' Ronak.: 0.10 m/s Lateral E' Ronak.: 0.10 m/s Pulmonary Valve PV Peak Ronak.: 1.68 m/s PV Peak Gr.: 11.32 mmHg Left Ventricle The left ventricle is normal size. There is normal LV segmental wall motion. There is normal left ventricular wall thickness. Left ventricular systolic function is normal. The left ventricular ejection fraction is within the normal range. LVEF is 65-70%. Grade I - abnormal relaxation pattern. Right Ventricle The right ventricle is normal size. The right ventricular systolic function is normal. Atria The left atrium size is normal. The right atrium size is normal. Aortic Valve Aortic valve is calcified. No aortic regurgitation is present. Mild aortic stenosis. Mitral Valve There is mitral annular calcification. The mitral valve is normal in structure. There is no mitral valve regurgitation noted. Mild to moderate mitral stenosis. Tricuspid Valve The tricuspid valve is normal in structure. Trace tricuspid regurgitation. Unable to assess PA pressure. Pulmonic Valve Pulmonic valve is not well visualized. There is no pulmonic [place] [address] 2 D/M-MODE ECHOCARDIOGRAM Name: RUTH AGUILAR Room: [address] IN [facility].#: [id number] Admission: 12/07/19 Attend Phys: Eugene Longo Discharge: Date of : 33 Date of Service: 12/09/19 1451 Report #: [id number] Great Vessels The aortic root is normal in size. IVC is normal in size and collapses >50% with inspiration. Pericardium There is no pericardial effusion. <Conclusion> LVEF is 65-70%. Mild aortic stenosis. <ELECTRONICALLY SIGNED> By: Trung Washburn MD, FACC 12/09/191450 50 50 Trung Washburn MD, FACC /INF
[2019-12-09 16:24] VITALS: BP 139/71
[2019-12-09 20:10] VITALS: BP 107/71
[2019-12-10] VITALS: BP 149/62
[2019-12-10 04:00] VITALS: BP 131/65
[2019-12-10 08:00] VITALS: BP 130/109
[2019-12-10 13:07] VITALS: BP 163/82
--- NOTE | 2019-12-10 14:44 | CON ---
[address] [address] CONSULTATION Name: JEFFRUTH GEORGIA Room: [address] IN M.R.#: [id number] Admission: 12/07/19 Attend Phys: Deniz Talley Discharge: Date of : 34 Report #: [id number] THIS REPORT FOR: //name// cc: Mendoza Chao MD, Todd A. MD ~ THIS REPORT FOR: //name// CC: Troy Longo DATE OF SERVICE: 12/08/2019 CARDIOLOGY CONSULTATION HISTORY OF PRESENT ILLNESS: The patient is an 84-year-old single white female who I was asked to see in the hospital today after she fell at home. The patient has had multiple hospitalizations here at [facility] in the past. She has a history of COPD and has been on oxygen at home. She smoked for several years, but fortunately quit smoking about 8 years ago. She was admitted here in 2017 for repair of her hernia. She was admitted here in 2018 with cholelithiasis. She was felt to be a poor surgical candidate and she was treated medically. She has a history of falls. She had an EEG performed in 09/2018 consistent with encephalopathy, but no seizures were noted. She was brought to the Emergency Room by family members 2 days ago. She apparently had fallen. She was diagnosed with seizures in the past. Because of her falls and syncope, Cardiology consultation requested. She denies a history of palpitations. She does occasionally have chest pain, but it is not related to food. She does get short of breath on exertion. PAST MEDICAL HISTORY: She had cholecystectomy and hernia repair. She has a history of diabetes, hypertension. She has had anterior cervical fusion, cataract extraction, previous carotid Doppler study showed 100% right carotid occlusion. She has had a parathyroidectomy. She has been diagnosed with factor V Leiden in the past, hyperlipidemia, chronic kidney disease. She is followed by Dr. Lundberg for COPD. MEDICATIONS: On admission included Cardura, Synthroid, Pulmicort, oxybutynin, Lasix, Januvia, pravastatin, albuterol, Xarelto. ALLERGIES: SHE HAS AN ALLERGY TO PENICILLIN. FAMILY HISTORY: Her father had heart disease. SOCIAL HISTORY: She is , lives here in [place] with a son. Quit smoking 8 years ago[place] [address] CONSULTATION Name: RUTH AGUILAR Room: [address]#: [id number] Admission: 12/07/19 Attend Phys: Deniz Talley Discharge: Date of : 34 Report #: [id number] REVIEW OF SYSTEMS: No history of stroke. She has a history of seizures. She has COPD, chronic kidney disease. No liver disease. No cancer. No chronic skin condition. PHYSICAL EXAMINATION: GENERAL: Revealed an elderly frail appearing female, lying in bed. She appeared in no distress. VITAL SIGNS: She had a blood pressure 140/70, pulse is 80, she is afebrile. HEENT: She was anicteric. Conjunctivae are pink. Mucous membranes dry. NECK: Veins are nondistended. CHEST: Clear to auscultation. CARDIOVASCULAR: Regular rate and rhythm. ABDOMEN: Soft. EXTREMITIES: Had trace edema. SKIN: Cool and dry. NEUROLOGIC: Nonfocal. LYMPH: No adenopathy. MUSCULOSKELETAL: No joint effusion. Her ECG showed a sinus rhythm with nonspecific changes in the ST segments. Her workup, she had an echocardiogram in 2017 that showed normal ejection fraction, mild aortic stenosis with a peak gradient across the aortic valve leaflets of 17 mmHg. Her x-rays done since her admission, portable chest x-ray showed scarring, hyperinflated lung villaseñor. CT scan of the head showed no acute abnormality, atrophy, white matter changes. Carotid Doppler study performed showed 70% narrowing of the internal carotid arteries. Venous duplex scan showed no DVT. LABORATORY DATA: Sodium 143, creatinine 1.2. Troponin 0.06. Her TSH 0.5. White blood cell count 7.7, hemoglobin 10.8, however, it was 9.6 in 2014. IMPRESSION AND RECOMMENDATIONS: 1. Syncope. No obvious cardiac causes. Recommend no further cardiac evaluation. 2. History of seizures. 3. Carotid stenosis. 4. Hypertension. The patient is on alpha stefania. 5. Hyperlipidemia. The patient is on a statin drug. 6. Chronic obstructive pulmonary disease. 7. Mild aortic stenosis. <ELECTRONICALLY SIGNED> By: Trung Washburn MD, [facility] 12/10/19 1444 1015 1041Drdaha Washburn MD, [facility] /nt
[2019-12-10 17:10] VITALS: BP 141/48
[2019-12-10 20:00] VITALS: BP 145/64
[2019-12-11] VITALS: BP 153/77
[2019-12-11 06:02] VITALS: BP 156/77
[2019-12-11 08:00] VITALS: BP 154/68
[2019-12-11 11:00] VITALS: BP 156/77
[2019-12-11 11:58] VITALS: BP 156/77
[2019-12-11 12:18] VITALS: BP 132/72
--- NOTE | 2019-12-19 03:46 | CON ---
[facility] [address] [place] [address] CONSULTATION Name: JEFFRUTH GEORGIA Room: [address] IN M.R.#: [id number] Admission: 12/07/19 Attend Phys: Deniz Talley Discharge: 12/11/19 Date of : 34 Report #: [id number] THIS REPORT FOR: //name// cc: Mendoza Chao MD, Todd A. MD ~ THIS REPORT FOR: //name// CC: Ryan Chao DATE OF SERVICE: 12/07/2019 HISTORY OF PRESENT ILLNESS: This is an 84-year-old female patient who was evaluated by me for the possibility of seizure. The patient gives a poorly defined history. She says that she has a gaze look and she starts shaking. She does not fall down. They helped her sit on something and then she was out for 10-15 minutes. She may be confused for a little while, then she become better. She never had any tongue biting or urinary incontinence. She was one time at [facility] where she went after a fall and she was diagnosed with a seizure and she was on Vimpat 100 mg p.o. b.i.d. She said initially it helped, now they are working opposite and it is making her worse. She is being worked up by multiple other physicians. REVIEW OF SYSTEMS: A 14-point review of systems is positive for cervical diskectomies, skin cancer, bilateral cataracts, hypertension, COPD, DVT, carotid artery disease, parathyroidectomy, PE, factor IV Leiden disorder, oral surgery, reflux disease, hypoxemia, she said she was a smoker only as a teenager, hyperlipidemia, diabetes, question of TIA. She has only one functioning kidney. She has CHF. She does not complain of new eye, ENT, musculoskeletal, constitutional, dermatological, hematological, psychiatric, throat, allergic symptom associated with present symptomatology. She is not any more short of breath than usual. PAST MEDICAL HISTORY: Positive for oxygen requirement. FAMILY HISTORY: Unremarkable. SOCIAL HISTORY: She does not smoke. She used to smoke only as a teenager. PHYSICAL EXAMINATION: Indicates she is alert. She is responsive. She is able to follow simple commands. Her speech looks okay. She thinks her memory is poor, but she is oriented. She knows the name of the president. She knows what hospital she is in. Cranial nerve examination 2-12 looks unremarkable. Strength, sensation, reflexes and tone look symmetrical as much as could be done. She did not do the position sense very well. Her pulses are difficult to feel. She does appear to have some shortness [place] [address] CONSULTATION Name: RUTH AGUILAR Room: [address] IN M.R.#: [id number] Admission: 12/07/19 Attend Phys: Deniz Talley Discharge: 12/11/19 Date of : 34 Report #: [id number] indicates she is hemodynamically stable. Blood pressure is 167/72, respirations 16, pulse is 79, temperature 98. She has no thyroid mass, no carotid bruit. She is moderately built. Her hearing and vision looks adequate. LABORATORY DATA: White count is 7.7. She did have a CT scan of the head, which does not show any definite abnormality. IMPRESSION: It is not certain the episode that she is having, is seizure. Vimpat is pretty effective for seizures and if she is having more episode, I think cardiac etiology need to be excluded. She denies any anxiety, but again that needs to be kept in mind. Vimpat can cause cardiac arrhythmia and that needs to be addressed. I will be more inclined to taper off Vimpat and start her on some other medications if necessary. I will get an EEG done. I will try to get the record from [facility]. Thank you very much for this referral and we will follow up after the testing. <ELECTRONICALLY SIGNED> By: Alex Packer MD 12/19/19 0346 1439 1540Alex Packer MD /nt
--- NOTE | 2019-12-19 03:46 | EEG ---
[address] [address] EEG STUDY REPORT Name: RUTH AGUILAR Room: [address] IN M.R.#: [id number] Admission: 12/07/19 Attend Phys: Deniz Talley Discharge: 12/11/19 Date of : 34 Report #: [id number] THIS REPORT FOR: //name// CC: Mendoza Longo DATE OF SERVICE: 12/07/2019 This patient is being evaluated for syncope versus seizure. EEG was done by placing the electrodes by standard 10-20 system of electrode placement. Both referential and sequential montages were used for recording. Background activity in this patient's EEG is about 8-9 Hz and 30 microvolt. The patient went to sleep that is associated with bilateral slowing and vertex sharp waves. Photic stimulation is unremarkable. The EEG is intermixed with theta range slowing on both sides, even when the patient is awake. IMPRESSION: This patient's EEG is intermixed with theta range slowing on both sides. That is a nonspecific finding, which can occur with encephalopathy, effect of psychotropic medication, dementia, etc. No active epileptiform activity was noticed during this record. <ELECTRONICALLY SIGNED> By: Alex Packer MD 12/19/19 0346 0832 0838Alex Packer MD /chanda
--- NOTE | 2019-12-19 03:46 | EEG ---
[address] [address] EEG STUDY REPORT Name: RUTH AGUILAR Room: [address] IN M.R.#: [id number] Admission: 12/07/19 Attend Phys: Deniz Talley Discharge: 12/11/19 Date of : 34 Report #: [id number] THIS REPORT FOR: //name// CC: Mendoza Longo DATE OF SERVICE: 12/07/2019 This patient has a history of seizure. EEG is being done to evaluate that. EEG was done by placing the electrode by standard 10-20 system of electrode placement. Both referential and sequential montages were used for recording. Background activity in this patient's EEG is about 8 Hz and 30 microvolt. The patient goes to sleep that is associated with bilateral slowing and vertex sharp waves. Even when the patient is awake, there is some intermixed theta range slowing. Photic stimulation is unremarkable. Throughout the record, no active epileptiform activity was noticed. IMPRESSION: This patient's EEG is intermixed with theta range slowing on both sides. That is a nonspecific finding, which can occur with encephalopathy, effect of psychotropic medication, dementia, etc. No active epileptiform activity was noticed. Thank you very much for this referral. <ELECTRONICALLY SIGNED> By: Alex Packer MD 12/19/19 0346 1330 1409Alex Packer MD /chanda
== END 2019-12-11 15:35 | disposition home health service (06) | DRG 67 ==
LOC: M.ERS 17:07 → M.TBA-ER 18:47 → M.2W 21:34
PROVIDERS: Emergency Medicine; ADMIT Internal Medicine; ATTEND Internal Medicine
DX: I65.23 Occlusion and stenosis of bilateral carotid arteries (principal); G93.41 Metabolic encephalopathy; N17.9 Acute kidney failure, unspecified; I13.0 Hypertensive heart and chronic kidney disease with heart failure and stage 1 through stage 4 chronic kidney disease, or unspecified chronic kidney disease; R56.9 Unspecified convulsions; J44.9 Chronic obstructive pulmonary disease, unspecified; E78.5 Hyperlipidemia, unspecified; I50.9 Heart failure, unspecified; E11.22 Type 2 diabetes mellitus with diabetic chronic kidney disease; E11.51 Type 2 diabetes mellitus with diabetic peripheral angiopathy without gangrene; E03.9 Hypothyroidism, unspecified; I35.0 Nonrheumatic aortic (valve) stenosis; I25.10 Atherosclerotic heart disease of native coronary artery without angina pectoris; N18.3 Chronic kidney disease, stage 3 (moderate); Z96.1 Presence of intraocular lens; Z86.711 Personal history of pulmonary embolism; Z98.1 Arthrodesis status; Z85.828 Personal history of other malignant neoplasm of skin; Z98.42 Cataract extraction status, left eye; Z98.41 Cataract extraction status, right eye; Z88.0 Allergy status to penicillin; Z88.8 Allergy status to other drugs, medicaments and biological substances; Z91.041 Radiographic dye allergy status; Z86.718 Personal history of other venous thrombosis and embolism; Z87.891 Personal history of nicotine dependence; Z90.49 Acquired absence of other specified parts of digestive tract; Z03.818 Encounter for observation for suspected exposure to other biological agents ruled out; Z79.01 Long term (current) use of anticoagulants; Z79.899 Other long term (current) drug therapy